=== PATIENT | female | born 1985 | race Hispanic/Latino ===

== ENCOUNTER 2018-11-04 02:12 | Emergency (ER) | payer BC ==
[2018-11-04] MEDS ORDERED: Ketorolac Tromethamine 30 MG/ML VIAL ONE (03:44)
[2018-11-04] MEDS ORDERED: Acetaminophen 325 MG TAB ONE (03:44)
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
== END 2018-11-04 03:59 | disposition home or self-care (01) ==
LOC: ERS 02:12
DX: S20.311A Abrasion of right front wall of thorax, initial encounter (principal); F17.210 Nicotine dependence, cigarettes, uncomplicated; V43.52XA Car driver injured in collision with other type car in traffic accident, initial encounter
CPT/HCPCS: 71045; 93005; 96374; J1885

== ENCOUNTER 2019-02-10 02:04 | Emergency (ER) | payer BC ==
[2019-02-10] MEDS ORDERED: Lidocaine Viscous Sol 2% 15 ml UD Cup ONE (03:52)
--- NOTE | 2019-02-10 07:42 | RAD ---
Portable frontal chest radiograph: 02/10/2019 COMPARISON: 11/04/2018 HISTORY: Sensation of foreign body impaction FINDINGS: Lungs are clear. Heart and mediastinal contours appear within normal limits. IMPRESSION: No acute findings.
--- NOTE | 2019-02-10 07:43 | RAD ---
2 views of the neck: 02/10/2019 COMPARISON: None HISTORY: Foreign body sensation in throat, pain, short of breath FINDINGS: No prevertebral soft tissue swelling. No discrete radiopaque foreign body seen. IMPRESSION: No acute findings.
--- NOTE | 2019-02-10 07:44 | CT ---
PRELIMINARY REPORT/[facility]/EMERGENCY AFTER HOURS PROCEDURE: EXAM: CT Neck Without Contrast EXAM DATE/TIME: 02/10/2019 3:02 AM CLINICAL HISTORY: 33 years old, female; Painful swallowing and throat pain; Patient HX: 33yo female presents for something stuck in her throat. She was drinking a caramel frappuccino and felt something come out of the straw and get stuck in her throat. At first she thought it was ice but it has persisted. Endor ses pain and SOB. TECHNIQUE: Imaging protocol: Axial computed tomography images of the neck without contrast. Coronal and sagittal reformatted images were created and reviewed. COMPARISON: No relevant prior studies available. FINDINGS: Sinuses: Multifocal sinus opacification and fluid levels, consistent with sinusitis. Nasopharynx: Normal. Oropharynx: Normal. No significant tonsillar enlargement. Hypopharynx: Normal. Larynx: Normal. Normal epiglottis. Retropharyngeal space: Normal. Submandibular/Parotid glands: Normal. Glands are normal in size. Thyroid: Normal. No enlarged or calcified nodules. Lymph nodes: Normal. No lymphadenopathy. Trachea: Visualized trachea is unremarkable. Lungs: Normal as visualized. Bones/joints: Normal. No acute fracture. Soft tissues: No discernible foreign body. IMPRESSION: 1. Multifocal sinus opacification and fluid levels, consistent with sinusitis. 2. No discernible foreign body. Thank you for allowing us to participate in the care of your patient. Dictated and Authenticated by: Jeremy Rdz MD 02/10/2019 4:42 AM Central Time ([place] & [place]) FINAL REPORT CT NECK WITHOUT CONTRAST: Date: 02/10/19 COMPARISON: None HISTORY: Throat pain, pain with swallowing. FINDINGS: The lack of contrast media limits assessment of the vascular structures and for lymphadenopathy. I agree with the preliminary report. Imaged lung apices appear unremarkable. No discrete radiopaque foreign body seen. There is mucosal th ickening involving the bilateral maxillary sinuses and visualized portions of the ethmoid air cells, left greater than right. The retroantral fat and the parapharyngeal fat appears grossly unrema rkable. Parotid glands and submandibular glands appear unremarkable as well. Review of the osseous structures demonstrates multilevel degenerative change within the cervical spine including multilevel disc space narrowing and osteophyte formation. No worrisome lytic or blastic bone lesion. IMPRESSION: No discrete foreign body seen. Code QA Transcribed Date/Time: 02/10/2019 9:06 AM
--- NOTE | 2019-02-10 09:10 | CT ---
PRELIMINARY REPORT/[facility]/EMERGENCY AFTER HOURS PROCEDURE: EXAM: CT Chest Without Contrast EXAM DATE/TIME: 02/10/2019 3:05 AM CLINICAL HISTORY: 33 years old, female; Chest pain; Patient HX: 33yo female presents for something stuck in her throat. She was drinking a caramel frappaccino and felt something come out of the straw and get stuck in her throat. At first she thought it was ice but it has persisted. Endorses pain and SOB. TECHNIQUE: Imaging protocol: Axial computed tomography images of the chest without intravenous contrast. Coronal and sagittal reformatted images were created and reviewed. COMPARISON: No relevant prior studies available. FINDINGS: Lungs: Unremarkable. No consolidation. No masses. Pleural space: Unremarkable. No pneumothorax. No pleural effusion. Heart: Unremarkable. No cardiomegaly. No pericardial effusion. Mediastinum: Esophagus is unremarkable. Aorta: Unremarkable. No aortic aneurysm. Lymph nodes: Unremarkable. No enlarged lymph nodes. Bones/joints: Unremarkable. No acute fracture. Soft tissues: Unremarkable. IMPRESSION: No acute findings. Thank you for allowing us to participate in the care of your patient. Dictated and Authenticated by: Jeremy Rdz MD 02/10/2019 4:44 AM Central Time ([place] & [place]) FINAL REPORT EMERGENT AFTER HOURS CT OF CHEST PERFORMED WITHOUT COTNRAST ENHANCEMENT: HISTORY: Shortness of breath. Possible foreign body. FINDINGS: The lungs are clear of any infiltrative process. No evidence of any atelectatic change. No signs of pleural effusions. Thoracic aorta is normal in caliber. I do not appreciate any mediastinal or hilar adenopathy on this noncontrast study. I do not see any foreign bodies within the trachea or mainstem bronchi. Visualized liver parenchyma shows no focal findings. IMPRESSION: 1. Unremarkable CT of the chest. 2. This report is in agreement with the temporary report issued by [facility]. POS: OFF
== END 2019-02-10 04:48 | disposition home or self-care (01) ==
LOC: ERS 02:04
DX: T18.0XXA Foreign body in mouth, initial encounter (principal); Z71.6 Tobacco abuse counseling; F17.210 Nicotine dependence, cigarettes, uncomplicated
CPT/HCPCS: 70360; 70490; 71045; 71250; 99406

== ENCOUNTER 2019-05-15 13:42 | Emergency (ER) | payer BC ==
--- NOTE | 2019-05-15 14:19 | RAD ---
PORTABLE CHEST 1 VIEW: Date: 05/15/19 Time: 1338 hours HISTORY: Dizziness, palpitations, chest pain. FINDINGS: Comparison made with exam of 02/10/19. The heart size is borderline. The lungs are well expanded without focal areas of consolidation, pneum othoraces, greer pulmonary edema, or pleural effusions. IMPRESSION: No acute process. POS: TPC
[2019-05-15 15:07] LABS: #Basophils 0.1 thou/uL (0.0-0.2); #Eosinphils 0.1 thou/uL (0.0-0.7); #Lymphocytes 1.5 thou/uL (1.20-3.40); #Monocytes 0.3 thou/uL (0.11-0.59); #Neutrophils 8.9 thou/uL (1.40-6.50); %Basophils 0.6 % (0.0-1.0); %Eosinophils 0.7 % (0.0-10.0); %Lymphocytes 13.8 % (21.0-51.0); %Monocytes 3.1 % (0.0-10.0); %Neutrophils 81.8 % (42.0-75.0); Hemoglobin 11.4 g/dL (12.0-16.0); Mean Corpuscular HGB CONC 32.9 g/dL (32.0-36.0); Mean Corpuscular Hemoglobin 25.4 pg (27.0-31.0); Mean Platelet Volume 9.9 fL (7.4-10.4); Platelet Count 308 thou/uL (130-400); Red Blood Cell (RBC) Count 4.49 mill/uL (4.20-5.40); White Blood Cell (WBC) Count 10.9 thou/uL (4.8-10.8)
[2019-05-15 15:29] LABS: ALT (SGPT) 15 U/L (8-55); AST (SGOT) 13 U/L (5-34); Albumin 4.5 g/dL (3.5-5.0); Alkaline Phosphatase 78 U/L (40-110); Anion Gap 15 mmol/L (10-20); BUN (Urea Nitrogen) 12 mg/dL (7.0-18.7); Bilirubin, Total 0.3 mg/dL (0.2-1.2); CK (CPK) 121 U/L (29-168); Calc. Creatinine Clearance 0 mL/min (70-130); Calcium 10.3 mg/dL (7.8-10.44); Carbon Dioxide 26 mmol/L (22-29); Chloride 100 mmol/L (98-107); Estimated GFR-MDRD 80; Globulin 3.3 g/dL (2.4-3.5); Glucose 114 mg/dL (70-105); Lipase 10 U/L (8-78); Potassium 3.7 mmol/L (3.5-5.1); Protein, Total 7.8 g/dL (6.0-8.3); Sodium 137 mmol/L (136-145)
--- NOTE | 2019-05-16 14:30 | EKG ---
Test Reason : HTN Blood Pressure : / mmHG Vent. Rate : 102 BPM Atrial Rate : 102 BPM P-R Int : 142 ms QRS Dur : 084 ms QT Int : 352 ms P-R-T Axes : 030 006 020 degrees QTc Int : 458 ms Sinus tachycardia Otherwise normal ECG Confirmed by JUANITO WHIPPLE, BAILEE ([id number]), book editor MOLLY RIVERA ([id number]) on 05/16/2019 2:29:40 PM Referred By: Confirmed By:BAILEE SOLOMON MD
== END 2019-05-15 17:29 | disposition home or self-care (01) ==
LOC: ERS 13:42
DX: R55 Syncope and collapse (principal); F17.210 Nicotine dependence, cigarettes, uncomplicated
CPT/HCPCS: 36415; 71045; 80053; 82550; 83690; 84484; 85025; 93005; 94760; 96360; 96361

== ENCOUNTER 2019-05-28 10:23 | Emergency (ER) | payer BC ==
[2019-05-28 11:09] LABS: #Eosinphils 0.1 thou/uL (0.0-0.7); #Lymphocytes 1.8 thou/uL (1.20-3.40); #Monocytes 0.4 thou/uL (0.11-0.59); #Neutrophils 7.2 thou/uL (1.40-6.50); %Basophils 0.3 % (0.0-1.0); %Eosinophils 0.8 % (0.0-10.0); %Lymphocytes 19.1 % (21.0-51.0); %Monocytes 4.4 % (0.0-10.0); %Neutrophils 75.4 % (42.0-75.0); Hemoglobin 12.4 g/dL (12.0-16.0); Mean Corpuscular HGB CONC 32.4 g/dL (32.0-36.0); Mean Corpuscular Hemoglobin 25.3 pg (27.0-31.0); Mean Platelet Volume 10.1 fL (7.4-10.4); Platelet Count 284 thou/uL (130-400); RBC Distribution Width 15.9 % (11.5-14.5); Red Blood Cell (RBC) Count 4.93 mill/uL (4.20-5.40); White Blood Cell (WBC) Count 9.6 thou/uL (4.8-10.8)
[2019-05-28 11:22] LABS: BHCG - Serum Negative (NEGATIVE); Pregs Control Background? CLEAR/WHITE (CLR/WHITE); Pregs Control Bar Appear? YES (CONTROL BAR)
[2019-05-28 11:41] LABS: ALT (SGPT) 22 U/L (8-55); AST (SGOT) 15 U/L (5-34); Albumin 4.5 g/dL (3.5-5.0); Alkaline Phosphatase 69 U/L (40-110); Anion Gap 17 mmol/L (10-20); BUN (Urea Nitrogen) 10 mg/dL (7.0-18.7); Bilirubin, Total 0.3 mg/dL (0.2-1.2); CK (CPK) 72 U/L (29-168); Calc. Creatinine Clearance 0 mL/min (70-130); Calcium 10.9 mg/dL (7.8-10.44); Carbon Dioxide 25 mmol/L (22-29); Chloride 100 mmol/L (98-107); Estimated GFR-MDRD 82; Globulin 3.8 g/dL (2.4-3.5); Glucose 107 mg/dL (70-105); Lipase 12 U/L (8-78); Potassium 3.9 mmol/L (3.5-5.1); Protein, Total 8.3 g/dL (6.0-8.3); Sodium 138 mmol/L (136-145)
[2019-05-28 11:58] LABS: Thyroid Stimulating Hormone 2.8868 uIU/mL (0.35-4.94)
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
[2019-05-28 12:08] LABS: Bilirubin Negative (Negative); Blood, Urine Negative (Negative); Clarity Clear (Clear); Glucose, Urine (Dipstick) Normal (Negative); Leukocyte Negative Leu/uL (Negative); Nitrite Negative (Negative); Protein, Urine (Dipstick) Negative (Neg-Trace); Urobilinogen Normal mg/dL (Less than 2)
== END 2019-05-28 12:50 | disposition home or self-care (01) ==
LOC: ERS 10:23
DX: R06.00 Dyspnea, unspecified (principal); I10 Essential (primary) hypertension; F17.210 Nicotine dependence, cigarettes, uncomplicated; Z79.899 Other long term (current) drug therapy
CPT/HCPCS: 36415; 71275; 80053; 81003; 82550; 83690; 83880; 84443; 84484; 84703; 85025; 93005

== ENCOUNTER 2019-07-06 08:12 | Outpatient (CLI) | payer BC ==
--- NOTE | 2019-07-06 08:29 | RAD ---
EXAM: Chest PA and lateral: HISTORY: Dyspnea COMPARISON: 05/15/2019 FINDINGS: Heart: Normal cardiac silhouette Aorta: Unremarkable Pulmonary vessels: Normal Costophrenic angles: Costophrenic angles are clear. Lungs: No consolidation or masses. Pneumothorax: No pneumothorax Osseous structures: No osseous abnormalities IMPRESSION: No acute cardiopulmonary process.
== END 2019-07-06 08:13 | disposition home or self-care (01) ==
LOC: RAD 08:12
PROVIDERS: ATTEND Internal Medicine Critical Care Medicine
DX: R06.00 Dyspnea, unspecified (principal)
CPT/HCPCS: 71046

== ENCOUNTER 2021-02-07 19:30 | Outpatient (CLI) | payer BC | END 2021-02-07 19:31 | disposition home or self-care (01) | LOC: SLEEPLAB 19:30 | PROVIDERS: ATTEND Internal Medicine Critical Care Medicine | DX: G47.33 Obstructive sleep apnea (adult) (pediatric) (principal); G47.10 Hypersomnia, unspecified; G47.00 Insomnia, unspecified; R06.83 Snoring; I10 Essential (primary) hypertension | CPT/HCPCS: 95811 ==

== ENCOUNTER 2023-08-14 08:44 | Outpatient (CLI) | payer BC | END 2023-08-14 08:45 | disposition home or self-care (01) | LOC: BICMAMMO 08:44 | PROVIDERS: ATTEND Family Medicine | DX: Z12.31 Encounter for screening mammogram for malignant neoplasm of breast (principal) | CPT/HCPCS: 77063; 77067 ==